=== PATIENT | male | born 1940 | race Caucasian/White ===

== ENCOUNTER 2020-08-09 19:57 | Emergency (ER) | payer BC ==
[~2020-08-09] VITALS: Ht 170.2 cm; Wt 83.9 kg
[2020-08-09 20:10] VITALS: BP 136/49
--- NOTE | 2020-08-09 20:10 | NUR ---
ED Nurse Note: Recieved pt from home, BIBA with c/o dizziness and weakness x 3 days and worsening, denies chest pain, sob, fevers, diarrhea or vomiting, states just feels very weak, pt immediately gowned and placed on cardiac monitoring, IV line done and labs sent, will resume care as ordered and continue to closely monitor.
--- NOTE | 2020-08-09 20:38 | Diagnostic Imaging Report ---
EXAM: CT Head Without Intravenous Contrast CLINICAL HISTORY: PAIN TECHNIQUE: Axial computed tomography images of the head/brain without intravenous contrast. CTDI is 53.4 mGy and DLP is 1018.8 mGy-cm. One or more of the following dose reduction techniques were used: automated exposure control, adjustment of the mA and/or kV according to patient size, use of iterative reconstruction technique. COMPARISON: No relevant prior studies available. FINDINGS: Brain: Left brachium pontis region hyperattenuating 2.2 x 1.4 x 0.9 cm structure of uncertain significance. Otherwise no acute intracranial abnormality. No significant intracranial mass effect or herniation. Parenchymal volume loss. Nonspecific white matter hypoattenuation likely secondary to chronic microvascular ischemia. Cerebrovascular ASVD. 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 No hemorrhage. Ventricles: Unremarkable. No ventriculomegaly. Bones/joints: Unremarkable. No acute fracture. Soft tissues: Unremarkable. Sinuses: Unremarkable as visualized. No acute sinusitis. Mastoid air cells: Unremarkable as visualized. No mastoid effusion. IMPRESSION: 1. 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 2. Recommend skull base and whole brain MRI without and with IV contrast to further evaluate this finding and also includes cisternography sequences. 3. Otherwise no acute intracranial abnormality. 4. No significant intracranial mass effect or herniation. 5. Moderate chronic senescent findings above. <MYCVCSECTION> Communications: 08/09/20 20:34 Call Doctor Regarding Other, called DR Robertson on 08/09 20:33 (-07:00) 08/09/20 20:41 Call Doctor Regarding Other, called DR Robertson on 08/09 20:40 (-07:00) 08/09/20 21:39 Call From Janis Robertson MD on 08/09 21:32 (-07:00) 08/09/20 22:38 Call From [facility] Jesus Macedo on 08/09 22:32 (-07:00)
[2020-08-09 20:42] LABS: BASOPHILS % (AUTO) 0.8 % (0.0-2.0); EOSINOPHILS % (AUTO) 0.5 % (0.0-3.0); HEMATOCRIT 27.3 % (42.0-52.0); HEMOGLOBIN 8.3 G/DL (14.2-18.0); LYMPHOCYTES % (AUTO) 11.7 % (20.0-45.0); MEAN CORPUSCULAR VOLUME 81 FL (80-99); MONOCYTES % (AUTO) 5.3 % (1.0-10.0); NEUTROPHILS % (AUTO) 81.6 % (45.0-75.0); PLATELET COUNT 234 K/UL (150-450); RED BLOOD COUNT 3.35 M/UL (4.70-6.10); RED CELL DISTRIBUTION WIDTH 15.9 % (11.6-14.8); WHITE BLOOD COUNT 7.7 K/UL (4.8-10.8)
[2020-08-09] MEDS ORDERED: Gadavist 7.5mMol/7.5ml vial IV PRN (20:45)
[2020-08-09 20:46] LABS: CALCIUM 8.2 MG/DL (8.5-10.1); CREATININE 1.7 MG/DL (0.55-1.30); POTASSIUM 3.7 MMOL/L (3.5-5.1)
[2020-08-09 20:57] LABS: ALBUMIN/GLOBULIN RATIO 0.8 (1.0-2.7); BILIRUBIN,TOTAL 0.2 MG/DL (0.2-1.0)
[2020-08-09 21:00] VITALS: BP 128/40
[2020-08-09 21:00] LABS: INR 1.1 (0.9-1.1)
--- NOTE | 2020-08-09 22:35 | NUR ---
ED Nurse Note: Pt continues to rest in bed, awake and alert, no changes, headache or dizziness, IV site patent, pt is being taken to imaging for MRI, nad noted during pt transport.
--- NOTE | 2020-08-09 23:08 | Emergency Room Report ---
History of Present Illness General Chief Complaint: Generalized Weakness Source: Patient Present Illness HPI Disclaimer: Please note that this report is being documented using [employer] technology. This can lead to erroneous entry secondary to incorrect interpretation by the dictating instrument. HPI: 80-year-old male presents from home due to vision changes, dizziness and difficulty ambulating. Symptoms present for approximately 48 hours. He denies any nausea, vomiting, fevers cough chest pain or shortness of breath. He initially had a headache that has since resolved. He has a history of arthritis and states symptoms started approximately 2 days ago. Initially before this he was having left hip pain that resolved. However he developed a headache with some blurry vision and difficulty ambulating. Headache has resolved however blurry vision has been persistent. He reports of double vision. He is able to ambulate with a lot of difficulty. Presented from home by EMS. He has a history of [place] but denies a history of stroke Allergies: Coded Allergies: PENICILLINS (Verified Allergy, Unknown, 08/09/20) COVID-19 Screening Contact w/high risk pt: No Experienced COVID-19 symptoms?: No COVID-19 Testing performed BABY SITTER: No Patient History Reviewed Nursing Documentation: PMH: Agreed; PSxH: Agreed Nursing Documentation-PMH Hx Hypertension: Yes Review of Systems All Other Systems: negative except mentioned in HPI Physical Exam Vital Signs Date Time Temp Pulse Resp B/P (MAP) Pulse Ox O2 Delivery O2 Flow Rate FiO2 08/09/20 19:50 98.8 120 18 125/88 (100) 97 Room Air Sp02 EP Interpretation: reviewed, normal General Appearance: well appearing, no apparent distress Head: normocephalic, atraumatic Eyes: bilateral eye normal inspection, bilateral eye PERRL, bilateral eye EOMI ENT: hearing grossly normal, moist mucus membranes Neck: full range of motion, supple Respiratory: lungs clear, normal breath sounds, no rhonchi, no respiratory distress, no retraction, no wheezing Cardiovascular #1: normal peripheral pulses, regular rate, rhythm, no murmur Gastrointestinal: non tender, soft, non-distended, no guarding Neurologic: alert, motor strength/tone normal, oriented x3, sensory intact, speech normal, no focal defects, other - Patient reports double vision in both eyes, cranial nerves otherwise intact, dysmetria noted bilaterally. Skin: normal color, warm/dry Medical Decision Making ER Course MDM:differential included but not limited to hemorrhagic stroke, ischemic stroke, mass lesion, name a few. Clinical course-IV, cardiac monitoring, pulse oximetry, laboratory studies and CT scan of the brain ordered. CT scan of the brain demonstrated evidence of a lesion in the brainstem. Radiology recommended MRI for further characterization which was ordered. Patient does have difficulty with coordination and double vision, he did present outside the TPA window however due to concern for possible intracranial hemorrhage he would not be a TPA candidate. Laboratory studies did demonstrate evidence of anemia, chronic kidney disease. I even though patient's creatinine is 1.7 I do think he would benefit for MRI with contrast to further characterize lesion in his brain. I did discuss this with the radiologist. Based on MRI findings patient will most likely require higher level of care. Will sign out to oncoming physician to follow-up on MRI results and final disposition. I spoke with patient's son, Margarito Christianson, who was updated on patient's plan of care. Labs - Laboratory Tests Test 08/09/20 20:00 White Blood Count 7.7 K/UL (4.8-10.8) Red Blood Count 3.35 M/UL (4.70-6.10) L Hemoglobin 8.3 G/DL (14.2-18.0) L Hematocrit 27.3 % (42.0-52.0) L Mean Corpuscular Volume 81 FL (80-99) Mean Corpuscular Hemoglobin 24.7 PG (27.0-31.0) L Mean Corpuscular Hemoglobin Concent 30.3 G/DL (32.0-36.0) L Red Cell Distribution Width 15.9 % (11.6-14.8) H Platelet Count 234 K/UL (150-450) Mean Platelet Volume 8.5 FL (6.5-10.1) Neutrophils (%) (Auto) 81.6 % (45.0-75.0) H Lymphocytes (%) (Auto) 11.7 % (20.0-45.0) L Monocytes (%) (Auto) 5.3 % (1.0-10.0) Eosinophils (%) (Auto) 0.5 % (0.0-3.0) Basophils (%) (Auto) 0.8 % (0.0-2.0) Prothrombin Time 11.9 SEC (9.30-11.50) H Prothrombin Time INR 1.1 (0.9-1.1) Activated Partial Thromboplast Time 23 SEC (23-33) Sodium Level 142 MMOL/L (136-145) Potassium Level 3.7 MMOL/L (3.5-5.1) Chloride Level 107 MMOL/L (98-107) Carbon Dioxide Level 22 MMOL/L (21-32) Anion Gap 13 mmol/L (5-15) Blood Urea Nitrogen 22 mg/dL (7-18) H Creatinine 1.7 MG/DL (0.55-1.30) H Estimated Glomerular Filtration Rate 39.2 mL/min (>60) Glucose Level 207 MG/DL (74-106) H Calcium Level 8.2 MG/DL (8.5-10.1) L Total Bilirubin 0.2 MG/DL (0.2-1.0) Aspartate Amino Transferase (AST) 10 U/L (15-37) L Alanine Aminotransferase (ALT) 11 U/L (12-78) L Alkaline Phosphatase 69 U/L (46-116) Troponin I 0.007 ng/mL (0.000-0.056) Pro-B-Type Natriuretic Peptide 614 pg/mL (0-125) H Total Protein 6.6 G/DL (6.4-8.2) Albumin 3.0 G/DL (3.4-5.0) L Globulin 3.6 g/dL Albumin/Globulin Ratio 0.8 (1.0-2.7) L EKG Diagnostic Results Rate: normal Rhythm: NSR Other Impression PVCs, rate of 85, nonspecific EKG Chest X-Ray Diagnostic Results Chest X-Ray Diagnostic Results : Chest X-Ray Ordered: Yes # of Views/Limited/Complete: 1 View Indication: Other - Peter EP Interpretation: Yes Interpretation: no consolidation, no effusion, no pneumothorax Impression: No acute disease Electronically Signed by: Dexter Robertson MD CT/MRI/US Diagnostic Results CT/MRI/US Diagnostic Results : Imaging Test Ordered: CT scan of the brain Impression Mastoid air cells: Unremarkable as visualized. No mastoid effusion. IMPRESSION: 1. 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 2. Recommend skull base and whole brain MRI without and with IV contrast to further evaluate this finding and also includes cisternography sequences. 3. Otherwise no acute intracranial abnormality. 4. No significant intracranial mass effect or herniation. 5. Moderate chronic senescent findings above. Last Vital Signs Date Time Temp Pulse Resp B/P (MAP) Pulse Ox O2 Delivery O2 Flow Rate FiO2 08/09/20 21:00 98.8 75 18 128/40 99 Room Air Signed Out To: Dr. Cruz Referrals: [facility],REFERRING (PCP) Dexter Robertson M.D. Aug 09, 2020 23:08
--- NOTE | 2020-08-10 00:05 | NUR ---
ED Nurse Note: Pt returned from imaging, awake and alert, no acute changes or increased distress, continues to deny headache or dizziness at this time, states has s/s when moving mostly, denies chest pain and no sob or labored breathing ntoed, pt IV site intact, will continue to closely monitor while waiting for results and disposition.
[2020-08-10 00:35] VITALS: BP 149/53
--- NOTE | 2020-08-10 00:35 | NUR ---
ED Nurse Note: Pt continues to rest quietly, v/s stable, pt c/o having headache return, rated at 4/10 and throbbing, also with photoophobia, lights dimed and pt being medicated, remains on cardiac monitoring, pt is to be transferred to higher level of care, waiting for disposition and transfer info.pt also informed that [facility] spoke with his and informed of admission and plan of care.
[2020-08-10] MEDS ORDERED: Ketorolac 30mg Inj IV ONE (00:45)
--- NOTE | 2020-08-10 01:03 | Diagnostic Imaging Report ---
EXAM: MR Head Without and With Intravenous Contrast CLINICAL HISTORY: DIZZY TECHNIQUE: Magnetic resonance images of the head/brain without and with intravenous contrast in multiple planes. Thin section imaging was also performed through the temporal bone. COMPARISON: CT Head 08/09/20 FINDINGS: Brain: Moderate chronic small vessel ischemic change. Severe global volume loss. No evidence of acute infarct. Brainstem: Within the left inferior miriam there is an area of T1 hyperintense, T2 slightly hyperintense lesion overall measuring 1.4 x 1.5 x 1.3 cm. There is a 1.1 x 0.8 x 0.8 cm focus of enhancement within this lesion. Mild mass effect. While a susceptibility weighted imaging study was not performed, there appears to be susceptibility artifacts seen within this lesion as seen on the DWI series. Given the slightly dense appearance on the head CT and mild mass effect question cavernoma with recent hemorrhage. The amount of enhancement seen is slightly less than typical and raises the possibility of malignancy with hemorrhage such as metastases or primary glial tumor. Temporal bone: The seventh and eighth cranial nerve complexes are unremarkable. No abnormal enhancement. Fluid signal seen within the inner ear structures appears preserved. Ventricles: Enlarged ventricles secondary to involution. Bones/joints: Unremarkable. Sinuses: Unremarkable as visualized. No acute sinusitis. Mastoid air cells: Unremarkable as visualized. No mastoid effusion. Orbits: Bilateral lens replacements. IMPRESSION: 1. Within the left inferior miriam there is an area of T1 hyperintense, T2 slightly hyperintense lesion overall measuring 1.4 x 1.5 x 1.3 cm. There is a 1.1 x 0.8 x 0.8 cm focus of enhancement within this lesion. Mild mass effect. While a susceptibility weighted imaging study was not performed, there appears to be susceptibility artifacts seen within this lesion as seen on the DWI series. Given the slightly dense appearance on the head CT and mild mass effect question cavernoma with recent hemorrhage. The amount of enhancement seen is slightly less than typical and raises the possibility of malignancy with hemorrhage such as metastases or primary glial tumor. 2. Moderate chronic small vessel ischemic change. Severe global volume loss. <MYCVCSECTION> Communications: 08/10/20 01:07 Call Doctor Regarding Above results, called Everett Cruz MD on 08/10 01:07 (-07:00)
[2020-08-10 01:45] VITALS: BP 166/77
--- NOTE | 2020-08-10 01:45 | NUR ---
ED Nurse Note: Meds given for pain effective, 0/10 currently, pt assisted out of bed for urinal use, weakness noted, pt assisted back to bed and monitoring, info recieved for pt transfer to another hospital - [facility], pt signed transfer forms and gsve permission to call his son and to inform, covid testing done, will continue to closely monitor while waiting for transfer.
[2020-08-10] MEDS ORDERED: Labetalol 5mg/ml 20ml vial IV ONE (02:00)
[2020-08-10 02:06] LABS: APPEARANCE,URINE CLEAR; BILIRUBIN, URINE NEGATIVE (NEGATIVE); COLOR,URINE PALE YELLOW; GLUCOSE, URINE (UA) NEGATIVE (NEGATIVE); KETONES,URINE NEGATIVE (NEGATIVE); LEUKOCYTE ESTERASE ,URINE NEGATIVE (NEGATIVE); NITRITE,URINE NEGATIVE (NEGATIVE); PH,URINE 6 (4.5-8.0); PROTEIN,URINE NEGATIVE (NEGATIVE); UROBILINOGEN,URINE NORMAL MG/DL (0.0-1.0)
[2020-08-10 02:45] VITALS: BP 138/60
--- NOTE | 2020-08-10 02:50 | NUR ---
ED Nurse Note: Pt being transferred to [facility], room#8S46, report called to ELKE Gomes at [phone], all pertinent info given, [facility] has arrived for pt transport, rig#[id number], report and all forms and pt belongings given to - transfer driver, pt is awake, alert and oriented x 4, saline lock intact and patent, pt v/s stable, pt denies headache, chest pain, or any pain, no sob orl labored breathing noted, nad noted during pt transport.
[2020-08-10 03:00] VITALS: BP 138/60
--- NOTE | 2020-08-10 16:15 | Diagnostic Imaging Report ---
Indication: Cough Technique: One view of the chest Comparison: none Findings: The heart is borderline enlarged. Lungs and pleural spaces are clear. There are surgical clips in the right axilla. There is surgical hardware in the lower cervical spine. Impression: No acute process
--- NOTE | 2020-08-12 20:13 | Cardiology Report ---
APPROVED REPORT EKG Measurement Heart [id number] <Conclusion> Sinus rhythm with occasional premature ventricular complexes Nonspecific ST and T wave abnormality Abnormal ECG
== END 2020-08-10 03:00 | disposition short-term general hospital (02) ==
LOC: EDBD 19:57 → EMR 20:40
DX: D18.09 Hemangioma of other sites (principal); I62.9 Nontraumatic intracranial hemorrhage, unspecified; I10 Essential (primary) hypertension; Z88.0 Allergy status to penicillin
CPT/HCPCS: 36415; 70450; 70553; 71045; 80053; 81003; 83880; 84484; 85025; 85610; 85730; 93005; 96361; 96374; 96375; 99284; A9585; J1885; J7030; U0002